=== PATIENT | female | born 1955 | race Hispanic/Latino ===

== ENCOUNTER 2020-10-12 17:18 | Emergency (ER) | payer MEDICARE, OTHER ==
[~2020-10-12] VITALS: Ht 10.2 cm; Wt 70.5 kg
[2020-10-12] MEDS ORDERED: TETANUS/DIPHTHERIA TOX ADULT 0.5 ML SYR IM ONE (18:30)
[2020-10-12] MEDS ORDERED: AUGMENTIN 500-1 EACH PO (18:32)
[2020-10-12] MEDS ORDERED: TETANUS/DIPHTHERIA TOX ADULT 0.5 ML SYR ONE (18:44)
== END 2020-10-12 18:50 | disposition home or self-care (01) ==
LOC: FSED 17:31
DX: S91.051A Open bite, right ankle, initial encounter (principal); W54.0XXA Bitten by dog, initial encounter; Y92.488 Other paved roadways as the place of occurrence of the external cause; I10 Essential (primary) hypertension; M06.9 Rheumatoid arthritis, unspecified
CPT/HCPCS: 90471; 90714; 96372; 99282

== ENCOUNTER 2024-05-09 16:59 | Emergency (ER) | payer MEDICARE ==
[~2024-05-09] VITALS: Ht 160 cm; Wt 68.0 kg
[~2024-05-09 16:59] MED LIST: AUGMENTIN 500-1 EACH PO
[2024-05-09 17:00] VITALS: PULSE 86; RESP 18; TEMP 98.7
[2024-05-09] MEDS: ACETAMINOPHEN 325 MG TAB PO ONE (18:04)
[2024-05-09] MEDS ORDERED: AMOXICILLIN500 MG PO (18:07)
[2024-05-09] MEDS ORDERED: VENTOLIN HFA18 GM INH (18:08)
[2024-05-09 18:17] VITALS: BP 196/94; PULSE 73; RESP 16; TEMP 98.1; O2SAT 98
== END 2024-05-09 18:15 | disposition home or self-care (01) ==
LOC: FSED 17:10
DX: R05.9 Cough, unspecified (principal); J02.9 Acute pharyngitis, unspecified; R51.9 Headache, unspecified; I10 Essential (primary) hypertension; M06.9 Rheumatoid arthritis, unspecified; Z11.52 Encounter for screening for COVID-19
CPT/HCPCS: 0223U; 71046; 83518; 87400; 99284

== ENCOUNTER 2024-07-09 02:55 | Emergency (ER) | payer MEDICARE ==
[~2024-07-09] VITALS: Ht 160 cm; Wt 67.1 kg
[~2024-07-09 02:55] MED LIST changes: +AMOXICILLIN500 MG PO; +VENTOLIN HFA18 GM INH
[2024-07-09 03:02] VITALS: TEMP 99.5
[2024-07-09] MEDS ORDERED: Morphine 4mg INJECTION 4 MG/ML INJ IV PRN (03:45)
[2024-07-09] MEDS: FAMOTIDINE 20 MG/2 ML VIAL IV STA (04:26)
[2024-07-09] MEDS: ONDANSETRON HCL INJ 2MG/ML 2ML 2 MG/ML VIAL IV STA (04:26)
[2024-07-09] MEDS: LACTATED RINGER'S 1,000 ML INJ ONE ×2 (04:27→05:35)
[2024-07-09 05:54] VITALS: PULSE 83; RESP 18
[2024-07-09 06:25] VITALS: BP 158/74; PULSE 83; RESP 18; TEMP 98.7; O2SAT 100
== END 2024-07-09 06:25 | disposition home or self-care (01) ==
LOC: FSED 03:27
DX: R10.11 Right upper quadrant pain (principal); K80.50 Calculus of bile duct without cholangitis or cholecystitis without obstruction; I10 Essential (primary) hypertension; M06.9 Rheumatoid arthritis, unspecified
CPT/HCPCS: 0223U; 36415; 76700; 80048; 80076; 81003; 83605; 83690; 83880; 84484; 85025; 85379; 85610; 87400; 93005; 99283; J2405; J7121